=== PATIENT | female | born 2000 | race Caucasian/White ===

== ENCOUNTER 2021-01-04 14:34 | Emergency (ER) | payer OTHER ==
[~2021-01-04] VITALS: Ht 162.6 cm; Wt 68.9 kg
[2021-01-04 14:39] VITALS: BP 135/78
--- NOTE | 2021-01-04 14:40 | NUR ---
Patient ambulated to bed 11 with steady/even gait. Placed into a gown.
--- NOTE | 2021-01-04 14:50 | NUR ---
Dr. Goldsmith is evaluating patient at bedside.
[2021-01-04] MEDS ORDERED: methylPREDNISolone SS 125 MG in WATER STERILE 2 ML IV ONE (14:55)
[2021-01-04] MEDS ORDERED: NACL 0.9% 1,000 ML IV ONE (14:55)
[2021-01-04] MEDS ORDERED: diphenhydrAMINE 50 MG/ML VIAL IVP ONE (14:55)
[2021-01-04] MEDS ORDERED: FAMOTIDINE 20 MG/2 ML VIAL IVP ONE (14:55)
--- NOTE | 2021-01-04 15:00 | NUR ---
20 y/o F coming in from home with c/c allergic reaction. Patient presents A&Ox4, ambulatory with no obvious respiratory distress states that 30 minutes prior to arrival, patient was eating watermelon and placido and began experiencing an acute onset of shortness of breath and chest pressure. Patient states itchiness/bumps to bilateral upper extremities; denies any numbness/tingling/swellin to lips and tongue. Patient states no medication prior to arrival and reports eating watermelon in the past without any issues. 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 Lung sounds CTA. Bed locked in lowest position, side rails x 1, call light in reach. PMH: Transgender female to male Meds: Hormones once a month NKA
[2021-01-04] MEDS ORDERED: methylPREDNISolone SS 125 MG/2 ML VIAL ONE (15:01)
[2021-01-04] MEDS ORDERED: WATER STERILE 10 ML MC ONE (15:01)
--- NOTE | 2021-01-04 15:10 | NUR ---
Dr. Jernigan is evaluating patient at bedside.
--- NOTE | 2021-01-04 15:19 | NUR ---
Patient reports "I feel like I can breath a lot easier than earlier" after medication administration. Pt reports "bumps on my upper arms are still there." Denies any nausea, lightheadnedness at this time. patient monitor remains in place; patient breathing RR 21 even/unlabored; SpO2 99% on room air. Bed locked in lowest position, side rails x 1, call light in reach.
--- NOTE | 2021-01-04 16:00 | NUR ---
Patient resting in position of comfort with no distress noted. Patient states no SOB at this time. cafeteria monitor in place. RR 20, SpO2 98% on room air; respirations even/unlabored. Bed locked in lowest position, side rails x 1, call light in reach.
--- NOTE | 2021-01-04 16:13 | NUR ---
Dr. Jernigan is reevaluating patient at bedside.
[2021-01-04] MEDS ORDERED: DIPH25TA53 PO (16:18)
[2021-01-04] MEDS ORDERED: EPIN1KIT31 IM (16:18)
[2021-01-04 16:40] VITALS: BP 105/52
--- NOTE | 2021-01-04 16:40 | NUR ---
Patient discharged with v/s stable. Written and verbal after care instructions given and explained. Patient alert, oriented and verbalized understanding of instructions. Ambulatory with steady gait. All questions addressed prior to discharge. ID band removed. Patient advised to follow up with PMD. Rx of Epinephrine (Epipen), Diphenhydramine given. Patient educated on indication of medication including possible reaction and side effects. Opportunity to ask questions provided and answered.
== END 2021-01-04 16:40 | disposition home or self-care (01) ==
LOC: MED 14:34 → EDSEX 14:34 → MED 16:40
DX: T78.1XXA Other adverse food reactions, not elsewhere classified, initial encounter (principal); Z79.899 Other long term (current) drug therapy; X58.XXXA Exposure to other specified factors, initial encounter
CPT/HCPCS: 96361; 96374; 96375; 99284; J1200; J2930; J3490; J7030

== ENCOUNTER 2021-07-06 23:01 | Emergency (ER) | payer OTHER ==
[~2021-07-06] VITALS: Ht 162.6 cm; Wt 65.8 kg
[~2021-07-06 23:01] MED LIST: DIPH25TA53 PO; EPIN1KIT31 IM
[2021-07-06 23:40] VITALS: BP 130/81
[2021-07-07] MEDS ORDERED: ALBUTEROL SULFATE/IPRATROPIU 3 ML SOL IH ONE (00:05)
[2021-07-07] MEDS ORDERED: DEXAMETHASONE 4 MG/ML VIAL IM ONE (00:05)
--- NOTE | 2021-07-07 00:05 | NUR ---
RECEIVED I BED 2 WITH C/O SOB XYESTERDAY, WORSE TODAY. INHALER NOT HELPING. USED NEBULIZAR, WORKED FOR A BIT AND THEN CAME BACK. CHEST PAIN 3/10 WITH DEEP BREATH. WHEEZING, COUGHING PRESENT. HX:ASTHMA RX:ALBUTEROL, NEBULIZER
[2021-07-07] MEDS ORDERED: ALBU0.0912 IH (00:25)
[2021-07-07] MEDS ORDERED: PRED20TA6 PO (00:25)
[2021-07-07] MEDS ORDERED: ALBU2SYR49 PO (00:25)
--- NOTE | 2021-07-07 00:30 | NUR ---
RT IN PROGRESS
--- NOTE | 2021-07-07 00:40 | NUR ---
SWAB COLLECTED AND TAKEN TO LAB.
[2021-07-07 00:43] VITALS: BP 130/81
--- NOTE | 2021-07-07 00:43 | NUR ---
Patient discharged with v/s stable. Written and verbal after care instructions given and explained. Patient alert, oriented and verbalized understanding of instructions. Ambulatory with steady gait. All questions addressed prior to discharge. ID band removed. Patient advised to follow up with PMD. Rx of PREDNISONE, ALBUTEROL HFA MDI AND ALBUTEROL SYRUP given. Patient educated on indication of medication including possible reaction and side effects. Opportunity to ask questions provided and answered.
== END 2021-07-07 00:43 | disposition home or self-care (01) ==
LOC: MED 23:01
DX: J45.901 Unspecified asthma with (acute) exacerbation (principal); Z79.899 Other long term (current) drug therapy; Z20.822 Contact with and (suspected) exposure to COVID-19
CPT/HCPCS: 87426; 94640; 96372; 99285; J1100

== ENCOUNTER 2021-08-15 00:08 | Emergency (ER) | payer OTHER ==
[~2021-08-15] VITALS: Ht 162.6 cm; Wt 65.8 kg
[~2021-08-15 00:08] MED LIST changes: +ALBU0.0912 IH; +ALBU2SYR49 PO; +PRED20TA6 PO
[2021-08-15 00:30] VITALS: BP 112/85
[2021-08-15] MEDS ORDERED: ALBUTEROL 0.083% 2.5 MG/3 ML NEBU INH ONE ×2 (01:00→01:40)
[2021-08-15] MEDS ORDERED: IPRATROPIUM 0.02% 0.5 MG/2.5 ML NEBU INH ONE (01:00)
[2021-08-15] MEDS ORDERED: predniSONE 20 MG TAB PO ONE (01:00)
--- NOTE | 2021-08-15 01:03 | NUR ---
Dr. Pitts examining patient.
[2021-08-15] MEDS ORDERED: MAG SULF 2000 MG/WATER PREMIX 50 ML IV ONE (01:05)
--- NOTE | 2021-08-15 01:39 | NUR ---
20 YO/F BIB SIGNIFICANT OTHER W C/O SOB, DIFF BREATHING AND COUGH X5 DAYS WORSENING TODAY. PT DENIES ANY FEVERS, CHILLS, N/V/D, RUNNY NOSE. PT DENIES ANY CHEST PAIN, OR PAIN. PT O2 SAT 100% ON RA, CURRENTLY RECEIVING RESP TRT BY RT. PT HAS LABORED BREATHING, DEEP. WHEEZES ON EXP. OTHERWISE VSS. PT SITTING ON BED LOCKED IN LOWEST POSITION W X1 SIDERAIL UP. PMH:ASTHMA NKA
[2021-08-15] MEDS ORDERED: ALBU0.0912 IH (02:30)
[2021-08-15] MEDS ORDERED: PRED50TA2 PO (02:30)
--- NOTE | 2021-08-15 02:31 | NUR ---
Whit penn in ED - 08/15/21 at 0413 by CYNTHIA PER JUS TO ADMINISTER MAG SUL AT 50
--- NOTE | 2021-08-15 02:31 | NUR ---
PER JUS AND MICHAEL CHARGE NURSE TO ADMINISTER MAG SUL AT 50ML/HR.
[2021-08-15] MEDS ORDERED: GUAI100S27 PO (02:36)
--- NOTE | 2021-08-15 02:40 | NUR ---
PT REPORTS FEELING BETTER DENIES SOB OR DIFF BREATHING. REPORTS COUGH IMPORVEMENT. VSS. BREATHING EVEN AND UNLABORED. NAD NOTED, WILL CONTINUE TO MONITOR.
[2021-08-15 03:10] VITALS: BP 115/71
--- NOTE | 2021-08-15 03:10 | NUR ---
Patient discharged with v/s stable. Written and verbal after care instructions given and explained. Patient alert, oriented and verbalized understanding of instructions. Ambulatory with steady gait. All questions addressed prior to discharge. ID band removed. Patient advised to follow up with PMD. Rx of ALBUTEROL, GUAIFENESIN, PREDNISONE given. Patient educated on indication of medication including possible reaction and side effects. Opportunity to ask questions provided and answered.
== END 2021-08-15 03:10 | disposition home or self-care (01) ==
LOC: MED 00:08
DX: J45.901 Unspecified asthma with (acute) exacerbation (principal); Z79.899 Other long term (current) drug therapy; Z79.51 Long term (current) use of inhaled steroids
CPT/HCPCS: 94640; 96365; 99285; J3475; J7512; J7613; J7644

== ENCOUNTER 2021-09-19 05:50 | Emergency (ER) | payer OTHER ==
[~2021-09-19] VITALS: Ht 162.6 cm; Wt 65.8 kg
[~2021-09-19 05:50] MED LIST changes: +GUAI100S27 PO; +PRED50TA2 PO
[2021-09-19 06:00] VITALS: BP 127/87
--- NOTE | 2021-09-19 06:00 | NUR ---
to bed ambulatory
--- NOTE | 2021-09-19 06:25 | NUR ---
seen and examined by JUS
[2021-09-19] MEDS ORDERED: ALBUTEROL HFA MDI 90 MCG/ACTUATION 8 GM INH ONE (06:30)
[2021-09-19 06:57] VITALS: BP 117/82
[2021-09-19] MEDS ORDERED: PRED20TA5 PO (07:13)
[2021-09-19] MEDS ORDERED: ALBU0.0912 IH (07:13)
--- NOTE | 2021-09-19 07:17 | NUR ---
Patient discharged with v/s stable. Written and verbal after care instructions given and explained. Patient alert, oriented and verbalized understanding of instructions. Ambulatory with steady gait. All questions addressed prior to discharge. ID band removed. Patient advised to follow up with PMD. Rx of prednisone and albuterol given. Opportunity to ask questions provided and answered.
== END 2021-09-19 07:17 | disposition home or self-care (01) ==
LOC: MED 05:50
DX: J45.901 Unspecified asthma with (acute) exacerbation (principal)
CPT/HCPCS: 94664; 99283; J3535

== ENCOUNTER 2021-09-24 03:05 | Emergency (ER) | payer OTHER ==
[~2021-09-24] VITALS: Ht 162.6 cm; Wt 71.3 kg
[~2021-09-24 03:05] MED LIST changes: +PRED20TA5 PO
[2021-09-24 03:10] VITALS: BP 126/83
--- NOTE | 2021-09-24 03:10 | NUR ---
21 YO F BIB SELF WITH C/C OF SOB X YESTERDAY. PT HAS HX OF ASTHMA AND STATES SHE FEELS CHEST TIGHTNESS. PT USED NEBULIZER WITH NO RELIEF. WHEEZING AUSCULTATED THROUGHOUT LUNG FIELD. HX:ASTHMA RX:ALBUTEROL NKDA
--- NOTE | 2021-09-24 03:15 | NUR ---
PT IN TRIAGE FOR TX.
[2021-09-24] MEDS ORDERED: ALBUTEROL 0.083% 2.5 MG/3 ML NEBU INH ONE ×2 (03:25)
[2021-09-24] MEDS ORDERED: DEXAMETHASONE 10 MG/ML VIAL IM ONE (03:25)
--- NOTE | 2021-09-24 03:30 | NUR ---
CALLED RT FOR BREATHING TX.
--- NOTE | 2021-09-24 03:55 | NUR ---
RT IN TRIAGE WITH PT FOR BREATHING TX.
--- NOTE | 2021-09-24 04:34 | NUR ---
CLEAR LUNG SOUNDS POST BREATHING TX.
[2021-09-24] MEDS ORDERED: ALBU3SOL IH (04:48)
[2021-09-24 04:59] VITALS: BP 126/83
--- NOTE | 2021-09-24 04:59 | NUR ---
Patient discharged with v/s stable. Written and verbal after care instructions given and explained. Patient alert, oriented and verbalized understanding of instructions. Ambulatory with steady gait. All questions addressed prior to discharge. ID band removed. Patient advised to follow up with PMD. Rx of ALBUTEROL SULFATE given. Patient educated on indication of medication including possible reaction and side effects. Opportunity to ask questions provided and answered.
== END 2021-09-24 04:59 | disposition home or self-care (01) ==
LOC: MED 03:05
DX: J45.901 Unspecified asthma with (acute) exacerbation (principal); Z79.899 Other long term (current) drug therapy
CPT/HCPCS: 94640; 96372; 99283; J1100; J7613

== ENCOUNTER 2021-09-28 02:39 | Emergency (ER) | payer OTHER ==
[~2021-09-28] VITALS: Ht 162.6 cm; Wt 68.0 kg
[~2021-09-28 02:39] MED LIST changes: +ALBU3SOL IH
[2021-09-28 03:10] VITALS: BP 134/82
--- NOTE | 2021-09-28 03:10 | NUR ---
TO [facility]
--- NOTE | 2021-09-28 03:30 | NUR ---
SEEN AND EXAMINED BY JUS
[2021-09-28] MEDS ORDERED: IPRATROPIUM 0.02% 0.5 MG/2.5 ML NEBU INH ONE (03:35)
[2021-09-28] MEDS ORDERED: ALBUTEROL 0.083% 2.5 MG/3 ML NEBU INH ONE ×2 (03:35→04:45)
--- NOTE | 2021-09-28 03:45 | NUR ---
RT AT BEDSIDE ADMINISTERING BREATHING TREATMENT
--- NOTE | 2021-09-28 06:40 | NUR ---
PATIENT ELOPED FROM FACILITY. DISCHARGE INSTRUCTIONS NOT GIVEN TO PATIENT. DR. NEWMAN NOTIFIED.
== END 2021-09-28 06:40 | disposition home or self-care (01) ==
LOC: MED 02:39
DX: J45.909 Unspecified asthma, uncomplicated (principal); Z79.899 Other long term (current) drug therapy
CPT/HCPCS: 94640; 99284; J7613; J7644